=== PATIENT | male | born 1995 | race African-American/Black ===

== ENCOUNTER 2017-11-07 14:23 | Emergency (ER) | payer MEDICAID, OTHER ==
--- NOTE | 2017-11-07 14:26 | EDM.PDOC ---
ED HPI GENERAL MEDICAL PROBLEM - General Chief Complaint: Upper Extremity Injury/Pain Stated Complaint: INDEX FINGER ON RT HAND HURTS Time Seen by Provider: 11/07/17 14:25 Source of Information: Reports: Patient - History of Present Illness INITIAL COMMENTS - FREE TEXT/NARRATIVE: HISTORY AND PHYSICAL: History of present illness: [Patient punched a wall 3 weeks prior right index finger has nares deformity no fever nausea vomiting chills sweats no other injury ] Review of systems: As per history of present illness and below otherwise all systems reviewed and negative. Past medical history: As per history of present illness and as reviewed below otherwise noncontributory. Surgical history: As per history of present illness and as reviewed below otherwise noncontributory. Social history: No reported history of drug or alcohol abuse. Family history: As per history of present illness and as reviewed below otherwise noncontributory. Physical exam: HEENT: Atraumatic, normocephalic, pupils reactive, negative for conjunctival pallor or scleral icterus, mucous membranes moist, throat clear, neck supple, nontender, trachea midline. Lungs: Clear to auscultation, breath sounds equal bilaterally, chest nontender. Heart: S1S2, regular, negative for clicks, rubs, or JVD. Abdomen: Soft, nondistended, nontender. Negative for masses or hepatosplenomegaly. Negative for costovertebral tenderness. Pelvis: Stable nontender. Genitourinary: Deferred. Rectal: Deferred. Extremities: Atraumatic, negative for cords or calf pain. Neurovascular unremarkable. Neuro: Awake, alert, oriented. Cranial nerves II through XII unremarkable. Cerebellum unremarkable. Motor and sensory unremarkable throughout. Exam nonfocal. Right hand unaffected above the wrist entirely neurovascularly intact. Nares deformity on the second digit Diagnostics: [Right hand 3 views ] Therapeutics: [Splint applied by nursing Rest ice ibuprofen as needed Follow-up with hand specialty clinic ] Impression: bouteniers deformity right second digit] Definitive disposition and diagnosis as appropriate pending reevaluation and review of above. Right Index Finger Pain Score (Numeric/FACES): 8 - Related Data Allergies Allergy/AdvReac Type Severity Reaction Status Date / Time No Known Allergies Allergy Verified 11/07/17 14:32 Home Meds: Home Meds . [No Known Home Meds] 04/14/16 [History] Past Medical History Musculoskeletal History: Reports: None - Past Surgical History Musculoskeletal Surgical History: Reports: Shoulder Surgery Social & Family History - Tobacco Use Smoking Status *Q: Current Status Unknown - Alcohol Use Days Per Week of Alcohol Use: 2 Number of Drinks Per Day: 3 Total Drinks Per Week: 6 - Recreational Drug Use Recreational Drug Use: No Review of Systems - Review of Systems Review Of Systems: ROS reveals no pertinent complaints other than HPI. ED EXAM, GENERAL - Physical Exam Exam: See Below Course - Vital Signs Last Recorded V/S: Last Vital Signs Temp 98.1 F 11/07/17 14:29 Pulse 77 11/07/17 14:29 Resp 18 11/07/17 14:29 BP 138/74 11/07/17 14:29 Pulse Ox 100 11/07/17 14:29 - Orders/Labs/Meds Orders: Active Orders 24 hr Category Date Time Status Hand Comp Min 3V Rt [CR] Stat Exams 11/07/17 14:26 Taken Departure - Departure Time of Disposition: 15:53 Disposition: Home, Self-Care 01 Condition: Good Clinical Impression: Finger pain, right - Discharge Information Forms: ED Department Discharge Additional Instructions: Splint Rest ice ibuprofen as needed Follow-up with hand specialist, call number below on Thursday to schedule appropriate follow-up [facility] - Plastic Surgery [address], [address] [place] [address] The following information is given to patients seen in the emergency department who are being discharged to home. This information is to outline your options for follow-up care. We provide all patients seen in our emergency department with a follow-up referral. The need for follow-up, as well as the timing and circumstances, are variable depending upon the specifics of your emergency department visit. If you don't have a primary care physician on staff, we will provide you with a referral. We always advise you to contact your personal physician following an emergency department visit to inform them of the circumstance of the visit and for follow-up with them and/or the need for any referrals to a consulting specialist. The emergency department will also refer you to a specialist when appropriate. This referral assures that you have the opportunity for follow-up care with a specialist. All of these measure are taken in an effort to provide you with optimal care, which includes your follow-up. Under all circumstances we always encourage you to contact your private physician who remains a resource for coordinating your care. When calling for follow-up care, please make the office aware that this follow-up is from your recent emergency room visit. If for any reason you are refused follow-up, please contact the [facility] emergency department at and asked to speak to the emergency department charge nurse. - My Orders Last 24 Hours: My Active Orders 11/07/17 14:26 Hand Comp Min 3V Rt [CR] Stat - Assessment/Plan Last 24 Hours: My Active Orders 11/07/17 14:26 Hand Comp Min 3V Rt [CR] Stat
--- NOTE | 2017-11-09 17:57 | CR ---
EXAM DATE: 11/07/17 PATIENT'S AGE: 22 Patient: TRACY CORCORAN Facility: [place], [place] Site . Site : 1995 Study: XRay Extremity Right [id number] 3:35:23 PM Ordering Physician: Doctor Baldwin Final Report: INDICATION: Pain and swelling. TECHNIQUE: Three views. IMPRESSION: Mild swelling around the proximal interphalangeal joints index 2nd finger. No fracture or malalignment. Soft tissues radiographically otherwise unremarkable. Dictated by Noah Richardson MD @ Nov 07 2017 4:15PM (Electronic Signature) Report Signed by Proxy. LUIS EDUARDO
== END 2017-11-07 16:11 | disposition home or self-care (01) ==
LOC: MW.ED 14:23
DX: M20.021 Boutonniere deformity of right finger(s) (principal)
CPT/HCPCS: 73130-26-RT; 73130-RT; 99282; 99283